=== PATIENT | female | born 1990 | race African-American/Black ===

== ENCOUNTER 2019-03-07 12:07 | Inpatient (IN) | payer MEDICAID ==
[~2019-03-07] VITALS: Ht 198.1 cm; Wt 80.7 kg
[2019-03-07] VITALS (9 sets, daily range): BP systolic 113–128; BP diastolic 54–78
[~2019-03-07 12:07] MED LIST: LIDOCAINE HCL/PF 1% 2ML VIAL ONE
[2019-03-07] MEDS ORDERED: ONDANSETRON HCL 4MG/2ML INJ IV STA (12:29)
[2019-03-07] MEDS ORDERED: SODIUM CHLORIDE 0.9% 1,000 ML IV ONE ×2 (12:29→15:20)
[2019-03-07] MEDS ORDERED: MORPHINE SULFATE 4 MG/ML CPJ (NOT FOR IM USE) IV STA (12:29)
[2019-03-07 12:56] LABS: BG DEOXYHEMOGLOBIN 3.6 % (0.0-5.0); BG HCO3 ACT 15.2 mmol/L (22.0-26.0); BG METHEMOGLOBIN 0.3 % (0.0-1.5); BG OXYGEN SATURATION 96.4 % (92.0-98.5); BG OXYHEMOGLOBIN 95.1 % (94.0-97.0); BG PCO2 35.1 mmHg (35.0-45.0); BG PH 7.254 (7.350-7.450); BG PO2 88.6 mmHg (75.0-100.0); BG SAMPLE SITE RIGHT RADIAL; BG TOTAL HEMOGLOBIN 14.1 g/dL (12.0-18.0); BG VENT MODE ROOM AIR
[2019-03-07 13:07] LABS: CHLORIDE 100 mEq/L (98-107)
[2019-03-07 13:09] LABS: BASOPHILS % 0.5 % (0.0-2.0); EOSINOPHILS % 1.5 % (0.0-5.0); HEMATOCRIT. 42.2 % (36.0-48.0); HEMOGLOBIN. 13.2 g/dL (12.0-16.0); MEAN CORPUSCULAR HEMOGLOBIN 23.1 pg (28.0-32.0); MEAN CORPUSCULAR VOLUME 74.2 fL (81.0-99.0); MEAN PLATELET VOLUME 9.1 fl (7.4-10.4); MONOCYTES % 5.3 % (2.0-8.0); NEUTROPHILS % 69.7 % (40.0-76.0); PLATELET 303 x1000/uL (130-400); RED BLOOD CELL COUNT 5.69 mill/uL (4.2-5.4)
[2019-03-07 13:12] LABS: ETHANOL BLOOD < 10 mg/dL
[2019-03-07 13:18] LABS: BETA HYDROXYBUTYRATE 5.6 mMol/L (0.0-0.3)
[2019-03-07 13:21] LABS: HCG SCREEN NEGATIVE
[2019-03-07] MEDS ORDERED: INSULIN REGULAR (DRIP) 100 UNITS in SODIUM CHLORIDE 0.9% 100 ML IV ONE (14:33)
[2019-03-07 14:53] LABS: CLARITY URINE CLEAR (CLEAR); COLOR URINE YELLOW (YELLOW); KETONES URINE 4+ (NEGATIVE); LEUKOCYTE ESTERASE URINE NEGATIVE (NEGATIVE); NITRITE URINE NEGATIVE (NEGATIVE); OCCULT BLOOD URINE NEGATIVE (NEGATIVE); PROTEIN URINE 1+ (NEGATIVE); SPECIFIC GRAVITY URINE 1.032 (1.005-1.030); UROBILINOGEN URINE 0.2 E.U./dL (0.2-1.0)
[2019-03-07 15:08] LABS: PHENCYCLIDINE URINE SCREEN NEGATIVE (NEGATIVE)
[2019-03-07 15:09] LABS: *AMPHETAMINES SCREEN URINE NEGATIVE (NEGATIVE); *BARBITURATES SCREEN URINE NEGATIVE (NEGATIVE); *BENZODIAZEPINES SCREEN URINE NEGATIVE (NEGATIVE); *COCAINE SCREEN URINE NEGATIVE (NEGATIVE); METHADONE URINE SCREEN NEGATIVE (NEGATIVE)
[2019-03-07] MEDS: INSULIN REGULAR (DRIP) 100 UNITS in SODIUM CHLORIDE 0.9% 99 ML IV NR ×2 (15:12→18:20)
[2019-03-07 15:17] LABS: CANNABINOID URINE SCREEN PRESUMTIVE POSITIVE (NEGATIVE); OPIATES URINE SCREEN PRESUMTIVE POSITIVE (NEGATIVE)
[2019-03-07] MEDS ORDERED: ONDANSETRON HCL 4MG/2ML INJ IV ONE (15:30)
[2019-03-07] MEDS ORDERED: MORPHINE SULFATE 4 MG/ML CPJ (NOT FOR IM USE) IV ONE (15:30)
[2019-03-07 16:51] LABS: CHLORIDE 109 mEq/L (98-107)
[2019-03-07] MEDS ORDERED: DEXTROSE 50% WATER 50ML SYRINGE IV PRN ×4 (19:15→20:00)
[2019-03-07] MEDS ORDERED: MAGNESIUM/ALUMINUM HYDROXIDE/SIMETHICONE 30ML UDC PO PRN (20:00)
[2019-03-07] MEDS ORDERED: CLONIDINE 0.1MG TABLET PO PRN (20:00)
[2019-03-07] MEDS ORDERED: NA PHOS,M-B/NA PHOS,DI-BA ENEMA 118ML PR PRN (20:00)
[2019-03-07] MEDS ORDERED: HYDROCODONE/ACETAMINOPHEN 10/325MG TABLET PO PRN (20:00)
[2019-03-07] MEDS ORDERED: ACETAMINOPHEN 650MG SUPP PR PRN (20:00)
[2019-03-07] MEDS ORDERED: DIPHENHYDRAMINE 50MG/ML VIAL IV PRN (20:00)
[2019-03-07] MEDS ORDERED: BLOOD SUGAR DIAGNOSTIC STRIP TEST SCH (20:00)
[2019-03-07] MEDS ORDERED: ACETAMINOPHEN 650MG/20.3ML UDC GT PRN (20:00)
[2019-03-07] MEDS ORDERED: DOCUSATE SODIUM 100MG CAPSULE PO PRN (20:00)
[2019-03-07] MEDS ORDERED: INSULIN REGULAR (DRIP) 100 UNITS in SODIUM CHLORIDE 0.9% 100 ML IV SCH ×2 (20:00→20:30)
[2019-03-07] MEDS: ENOXAPARIN 40MG/0.4ML SYR SUBCUT SCH ×2 (20:00→20:26)
[2019-03-07] MEDS ORDERED: HYDROCODONE/ACETAMINOPHEN 5/325MG TABLET PO PRN (20:00)
[2019-03-07] MEDS ORDERED: ACETAMINOPHEN 325MG TABLET PO PRN (20:00)
[2019-03-07] MEDS: BLOOD SUGAR DIAGNOSTIC STRIP TEST SCH ×4 (20:00→23:21)
[2019-03-07] MEDS ORDERED: ONDANSETRON HCL 4MG/2ML INJ IV PRN (20:00)
[2019-03-07] MEDS ORDERED: IPRATROPIUM/ALBUTEROL 0.5-3(2.5)MG/3ML NEB HHN PRN (20:00)
[2019-03-07] MEDS: SODIUM CHLORIDE 0.45% 1,000 ML IV SCH (20:25)
[2019-03-07] MEDS: ONDANSETRON HCL 4MG/2ML INJ IV PRN (20:27)
[2019-03-07] MEDS: MORPHINE SULFATE 2 MG/ML CPJ (NOT FOR IM USE) IV PRN (20:27)
[2019-03-07] MEDS: SODIUM CHLORIDE 0.9% INJ 3ML FLUSH IVF SCH (21:31)
[2019-03-07 22:04] LABS: CHLORIDE 109 mEq/L (98-107)
[2019-03-08] VITALS (39 sets, daily range): BP systolic 94–149; BP diastolic 38–78
[2019-03-08] MEDS: BLOOD SUGAR DIAGNOSTIC STRIP TEST SCH ×11 (01:04→20:51)
[2019-03-08] MEDS: SODIUM CHLORIDE 0.45% 1,000 ML IV SCH (04:17)
[2019-03-08 05:39] LABS: BASOPHILS % 0.5 % (0.0-2.0); EOSINOPHILS % 0.8 % (0.0-5.0); HEMATOCRIT. 38.7 % (36.0-48.0); HEMOGLOBIN. 11.9 g/dL (12.0-16.0); LYMPHOCYTES % 18.7 % (20.0-50.0); MEAN CORPUSCULAR HEMOGLOBIN 22.6 pg (28.0-32.0); MEAN CORPUSCULAR VOLUME 73.6 fL (81.0-99.0); MEAN PLATELET VOLUME 8.3 fl (7.4-10.4); MONOCYTES % 6.6 % (2.0-8.0); NEUTROPHILS % 73.4 % (40.0-76.0); PLATELET 290 x1000/uL (130-400); RED BLOOD CELL COUNT 5.25 mill/uL (4.2-5.4); RED CELL DISTRIBUTION WIDTH 14.1 % (11.6-14.6)
[2019-03-08 05:50] LABS: CHLORIDE 110 mEq/L (98-107)
[2019-03-08 05:57] LABS: LDL CHOLESTEROL 143 mg/dL (5-100)
[2019-03-08 05:58] LABS: HDL CHOLESTEROL 41 mg/dL (40-59)
[2019-03-08] MEDS: SODIUM CHLORIDE 0.9% INJ 3ML FLUSH IVF SCH ×3 (06:00→21:06)
[2019-03-08] MEDS: MORPHINE SULFATE 2 MG/ML CPJ (NOT FOR IM USE) IV PRN ×2 (07:31→13:41)
[2019-03-08] MEDS ORDERED: INSU100I28 SQ (08:46)
[2019-03-08] MEDS ORDERED: SODIUM BICARBONATE 100 MEQ in DEXTROSE 5% WATER 1,000 ML IV SCH (09:30)
[2019-03-08] MEDS ORDERED: DEXTROSE 50% WATER 50ML SYRINGE IV PRN (09:30)
[2019-03-08] MEDS ORDERED: INSULIN GLARGINE UD 100 UNITS/ML SYR SUBCUT SCH (10:00)
[2019-03-08] MEDS: GUAIFENESIN 200MG/10ML SUGAR FREE UDC PO PRN ×2 (10:02→17:46)
[2019-03-08] MEDS: INSULIN LISPRO 100 UNITS/ML SUBCUT SCH ×5 (10:02→20:53)
[2019-03-08] MEDS: ONDANSETRON HCL 4MG/2ML INJ IV PRN (13:41)
[2019-03-08] MEDS: SODIUM BICARBONATE 50 MEQ in SODIUM CHLORIDE 0.45% 1,000 ML IV SCH (16:05)
[2019-03-08] MEDS: METOCLOPRAMIDE HCL 10MG/2ML VIAL IV PRN (19:03)
[2019-03-08] MEDS: ENOXAPARIN 40MG/0.4ML SYR SUBCUT SCH (20:00)
[2019-03-08 23:06] LABS: CHLORIDE 113 mEq/L (98-107)
[2019-03-09] VITALS (24 sets, daily range): BP systolic 107–149; BP diastolic 56–96
[2019-03-09] MEDS: METOCLOPRAMIDE HCL 10MG/2ML VIAL IV PRN (00:55)
[2019-03-09] MEDS: MORPHINE SULFATE 2 MG/ML CPJ (NOT FOR IM USE) IV PRN ×3 (00:56→23:00)
[2019-03-09] MEDS: SODIUM BICARBONATE 50 MEQ in SODIUM CHLORIDE 0.45% 1,000 ML IV SCH (05:40)
[2019-03-09] MEDS: SODIUM CHLORIDE 0.9% INJ 3ML FLUSH IVF SCH ×3 (05:40→22:00)
[2019-03-09] MEDS: BLOOD SUGAR DIAGNOSTIC STRIP TEST SCH ×4 (07:55→21:21)
[2019-03-09] MEDS: INSULIN LISPRO 100 UNITS/ML SUBCUT SCH ×6 (07:55→21:21)
[2019-03-09 09:46] LABS: CHLORIDE 108 mEq/L (98-107)
[2019-03-09] MEDS ORDERED: INSULIN GLARGINE UD 100 UNITS/ML SYR SUBCUT SCH (11:00)
[2019-03-09 11:42] LABS: BASOPHILS % 0.4 % (0.0-2.0); EOSINOPHILS % 1.5 % (0.0-5.0); HEMATOCRIT. 37.7 % (36.0-48.0); HEMOGLOBIN. 11.8 g/dL (12.0-16.0); LYMPHOCYTES % 27.4 % (20.0-50.0); MEAN CORPUSCULAR HEMOGLOBIN 22.8 pg (28.0-32.0); MEAN PLATELET VOLUME 8.3 fl (7.4-10.4); NEUTROPHILS % 62.7 % (40.0-76.0); PLATELET 261 x1000/uL (130-400); RED BLOOD CELL COUNT 5.16 mill/uL (4.2-5.4)
[2019-03-09 12:10] LABS: PHOSPHORUS 0.9 mg/dL (2.5-4.9)
[2019-03-09] MEDS ORDERED: POTASSIUM CHLORIDE 20MEQ TABLET SR PO SCH (12:30)
[2019-03-09] MEDS ORDERED: POTASSIUM PHOS,M-BASIC-D-BASIC 30 MMOL in SODIUM CHLORIDE 0.9% 500 ML IV SCH (14:00)
[2019-03-09] MEDS: MAGNESIUM 2 G PREMIX 50 ML IV SCH ×2 (14:27→22:42)
[2019-03-09 18:59] LABS: CLARITY URINE CLEAR (CLEAR); COLOR URINE YELLOW (YELLOW); KETONES URINE 3+ (NEGATIVE); LEUKOCYTE ESTERASE URINE NEGATIVE (NEGATIVE); NITRITE URINE NEGATIVE (NEGATIVE); OCCULT BLOOD URINE NEGATIVE (NEGATIVE); PROTEIN URINE NEGATIVE (NEGATIVE); SPECIFIC GRAVITY URINE 1.035 (1.005-1.030); UROBILINOGEN URINE 0.2 E.U./dL (0.2-1.0)
[2019-03-09] MEDS: ENOXAPARIN 40MG/0.4ML SYR SUBCUT SCH (21:00)
[2019-03-10] VITALS: BP 128/66
== END 2019-03-10 01:39 | disposition left against medical advice (07) | DRG 420 ==
LOC: ER 12:07 → CVICU 15:22 → EDBEDREQ 15:26 → ENRESERV 18:06 → 8WST 03-10 01:15
PROVIDERS: ADMIT Family Medicine; ATTEND Family Medicine
DX: E10.10 Type 1 diabetes mellitus with ketoacidosis without coma (principal); K31.84 Gastroparesis; E10.43 Type 1 diabetes mellitus with diabetic autonomic (poly)neuropathy; E83.42 Hypomagnesemia; E10.65 Type 1 diabetes mellitus with hyperglycemia; E86.0 Dehydration; J06.9 Acute upper respiratory infection, unspecified; E78.5 Hyperlipidemia, unspecified; D64.9 Anemia, unspecified; K92.2 Gastrointestinal hemorrhage, unspecified; Z79.4 Long term (current) use of insulin; Z59.0 Homelessness; Z82.49 Family history of ischemic heart disease and other diseases of the circulatory system
CPT/HCPCS: 36415; 36600; 71045; 80048; 80061; 80305; 80320; 81003; 82010; 82375; 82805; 82962; 83036; 83735; 84100; 84484; 84703; 93005; 96374; 99285; J1650; J1815; J2270; J2405; J2765; J3475; J3490; J7030; J7040; J7050; G0480